=== PATIENT | female | born 1935 | race Caucasian/White ===

== ENCOUNTER 2018-02-13 12:47 | Emergency (ER) | payer MEDICARE, BC ==
[2018-02-13 15:20] VITALS: BP 162/69; PULSE 56; RESP 18; TEMP 97.6; O2SAT 94
== END 2018-02-13 14:15 | disposition home or self-care (01) | DRG 696 ==
LOC: ED 12:47
DX: R32 Unspecified urinary incontinence (principal)
CPT/HCPCS: 99282

== ENCOUNTER 2018-04-04 10:49 | Outpatient (CLI) | payer MEDICARE, BC ==
[2018-02-13 15:20] VITALS: O2SAT 94
== END 2018-04-04 10:50 | disposition home or self-care (01) | DRG 561 ==
LOC: CONVCARE 10:49
PROVIDERS: ATTEND Orthopaedic Surgery
DX: S82.132D Displaced fracture of medial condyle of left tibia, subsequent encounter for closed fracture with routine healing (principal); M17.12 Unilateral primary osteoarthritis, left knee
CPT/HCPCS: 73564

== ENCOUNTER 2018-06-08 14:20 | Emergency (ER) | payer MEDICARE, BC ==
[2018-06-08 14:51] VITALS: TEMP 98.8
[2018-06-08] MEDS ORDERED: SODIUM CHLORIDE 0.9% 1000ML 1,000 ML IV ONE (14:53)
[2018-06-08 15:31] LABS: APPEARANCE,URINE Cloudy; BILIRUBIN,URINE NEGATIVE (NEGATIVE); COLOR,URINE Yellow; GLUCOSE, URINE (UA) NEGATIVE (NEGATIVE); KETONES,URINE NEGATIVE (NEGATIVE); LEUKOCYTE ESTERASE ,URINE 3+ (NEGATIVE); NITRATE,URINE POSITIVE (NEGATIVE); OCCULT BLOOD,URINE 2+ (NEG-TRACE); PH,URINE 6.5; UROBILINOGEN,URINE 0.2 (0.2-1.0 EU)
[2018-06-08 15:35] LABS: BACTERIA 2+ (< 1+); CRYSTALS NEGATIVE (0-3 AVE/HPF); EPITHELIAL CELLS 0-2 (SQUAMOUS); WBC,URINE TNTC (0-5AV/HPF)
[2018-06-08] MEDS ORDERED: SODIUM CHLORIDE 0.9% FLUSH 10 ML SOL IV PRN (15:39)
[2018-06-08] MEDS ORDERED: CIPROFLOXACIN HCL 500 MG TAB PO SCH (16:00)
[2018-06-08] MEDS ORDERED: CIPROFLOXACIN HCL 500 MG TAB PO ONE (16:49)
[2018-06-08 20:10] VITALS: BP 158/90; PULSE 77; RESP 16; O2SAT 94
== END 2018-06-08 18:25 | DRG 690 ==
LOC: ED 14:20
DX: N39.0 Urinary tract infection, site not specified (principal); B96.20 Unspecified Escherichia coli [E. coli] as the cause of diseases classified elsewhere; E86.0 Dehydration
CPT/HCPCS: 71046; 81001; 87077; 87088; 87186; 96365; 96366; 99283; 99285; A9270-GY

== ENCOUNTER 2018-09-14 18:53 | Inpatient (IN) | payer MEDICARE, BC ==
[2018-09-14] MEDS: SODIUM CHLORIDE 0.9% FLUSH 10 ML SOL IV PRN (19:52)
[2018-09-14 20:00] LABS: BASOPHILS % (AUTO) 1 % (0-3); EOSINOPHILS % (AUTO) 2 % (0-9); HEMATOCRIT 31 % (35-47); HEMOGLOBIN 9.3 gm/dl (12.0-15.5); LYMPHOCYTES % (AUTO) 16.7 % (10-50); MEAN CORPUSCULAR HEMOGLOBIN 33.4 pg (27.0-32.0); MEAN CORPUSCULAR HGB CONC 29.8 gm/dl (32.0-36.0); MONOCYTES % (AUTO) 10.1 % (0-12); NEUTROPHILS % (AUTO) 70.3 % (37-80)
[2018-09-14 20:06] LABS: MEAN CORPUSCULAR VOLUME 112 fL (81-99)
[2018-09-14 20:16] LABS: ALBUMIN 2.5 gm/dl (3.4-5.0); BILIRUBIN,TOTAL 0.3 mg/dl (0.2-1.0); CALCIUM 10.2 mg/dl (8.5-10.1); CARBON DIOXIDE 30.4 mEq/L (21-32); CREATININE 1.95 mg/dl (0.60-1.00); CRP INFLAMMATORY 0.79 mg/dl (0.00-0.33); POTASSIUM 4.9 mMol/L (3.5-5.1); TOTAL PROTEIN 7.7 gm/dl (6.4-8.2)
[2018-09-14 20:17] LABS: TROP I 0.018 ng/ml (0.000-0.056)
[2018-09-14 20:51] LABS: APPEARANCE,URINE Clear; BILIRUBIN,URINE NEGATIVE (NEGATIVE); COLOR,URINE Yellow; GLUCOSE, URINE (UA) NEGATIVE (NEGATIVE); KETONES,URINE NEGATIVE (NEGATIVE); LEUKOCYTE ESTERASE ,URINE NEGATIVE (NEGATIVE); NITRATE,URINE NEGATIVE (NEGATIVE); OCCULT BLOOD,URINE NEGATIVE (NEG-TRACE); UROBILINOGEN,URINE 0.2 (0.2-1.0 EU)
[2018-09-14 21:06] LABS: SEDIMENTATION RATE 121 mm/hr (0-20)
[2018-09-14 21:15] LABS: BACTERIA TRACE (< 1+); CRYSTALS NEGATIVE (0-3 AVE/HPF); EPITHELIAL CELLS 0-2 (SQUAMOUS); RBC,URINE 0-2 (0-3AV/HPF); WBC,URINE 0-2 (0-5AV/HPF)
[2018-09-14] MEDS ORDERED: DM/GUAIFENESIN SYRUP 10 ML SYRP PO PRN (22:48)
[2018-09-14] MEDS ORDERED: MAGNESIUM HYDROXIDE 30 ML SUS PO PRN (22:48)
[2018-09-14] MEDS ORDERED: ALUMINUM/MAGNESIUM 30 ML SUS PO PRN (22:48)
[2018-09-14] MEDS ORDERED: FENTANYL 25 MCG PATCH TDM TD SCH (23:00)
[2018-09-15] MEDS: FUROSEMIDE 20mg SOL IV SCH ×3 (00:52→21:02)
[2018-09-15] MEDS: SODIUM CHLORIDE 0.9% FLUSH 10 ML SOL IV PRN ×3 (00:53→21:03)
[2018-09-15] MEDS ORDERED: PATIENT EDUCATION 1 MISC PRN (00:56)
[2018-09-15 07:51] LABS: CALCIUM 10.6 mg/dl (8.5-10.1); CARBON DIOXIDE 29.5 mEq/L (21-32); CREATININE 1.86 mg/dl (0.60-1.00)
[2018-09-15] MEDS ORDERED: Non-Formulary Medication MISC (Nystatin 30 Gm Cream 1 APPL) TOP SCH (09:00)
[2018-09-15] MEDS ORDERED: CALCITRIOL 0.25 MCG PO SCH (09:00)
[2018-09-15] MEDS ORDERED: GABAPENTIN 100 MG CAP PO SCH (09:00)
[2018-09-15] MEDS: TRAMADOL HYDROCHLORIDE 50 MG TAB PO SCH ×2 (10:18→21:07)
[2018-09-15] MEDS: LEVOTHYROXINE SODIUM 50 MCG TAB PO SCH (10:19)
[2018-09-15] MEDS: ATENOLOL 25 MG TAB PO SCH (10:19)
[2018-09-15] MEDS: LISINOPRIL 20 MG TAB PO SCH (10:20)
[2018-09-15] MEDS: ONDANSETRON HCL 4 MG TAB PO SCH (10:21)
[2018-09-15] MEDS: GABAPENTIN 300 MG CAP PO SCH ×2 (10:22→21:04)
[2018-09-15] MEDS: CHOLECALCIFEROL 1,000 IU TAB PO SCH (10:23)
[2018-09-15] MEDS: MULTIVITAMIN2 1 EA TAB PO SCH (10:23)
[2018-09-15] MEDS: DOCUSATE SODIUM 100 MG SGL PO SCH (10:28)
[2018-09-15] MEDS: ASCORBATE SOD PO SCH ×2 (12:08→20:15)
[2018-09-15] MEDS: ARGININE PO SCH ×2 (12:08→20:15)
[2018-09-15] MEDS: VITE AC PO SCH ×2 (12:08→20:15)
[2018-09-15] MEDS: FENTANYL 25 MCG PATCH TDM TD SCH (12:10)
[2018-09-15] MEDS: CLOTRIMAZOLE 1% CREAM TOP SCH ×4 (12:11→22:52)
[2018-09-15] MEDS: CALCITRIOL 0.25 MCG SGL PO SCH (12:17)
[2018-09-15] MEDS: ACETAMINOPHEN 325 MG PO SCH ×2 (12:17→18:35)
[2018-09-15] MEDS: HEPARIN SODIUM 5000 U/ML SOL SC SCH (20:59)
[2018-09-15] MEDS: AMLODIPINE 5 MG TAB PO SCH (21:05)
[2018-09-16 07:41] LABS: CALCIUM 10.1 mg/dl (8.5-10.1); CARBON DIOXIDE 29.9 mEq/L (21-32); CREATININE 1.9 mg/dl (0.60-1.00); MAGNESIUM 2.1 mg/dl (1.8-2.4); POTASSIUM 4.9 mMol/L (3.5-5.1)
[2018-09-16] MEDS: HEPARIN SODIUM 5000 U/ML SOL SC SCH (08:42)
[2018-09-16] MEDS: CLOTRIMAZOLE 1% CREAM TOP SCH ×4 (08:44→20:56)
[2018-09-16] MEDS: VITE AC PO SCH ×2 (08:44→21:10)
[2018-09-16] MEDS: ARGININE PO SCH ×2 (08:44→21:10)
[2018-09-16] MEDS: ASCORBATE SOD PO SCH ×2 (08:44→21:10)
[2018-09-16] MEDS: CALCITRIOL 0.25 MCG SGL PO SCH (08:49)
[2018-09-16] MEDS: LEVOTHYROXINE SODIUM 50 MCG TAB PO SCH (08:50)
[2018-09-16] MEDS: GABAPENTIN 300 MG CAP PO SCH ×2 (08:50→20:53)
[2018-09-16] MEDS: DOCUSATE SODIUM 100 MG SGL PO SCH (08:50)
[2018-09-16] MEDS: CHOLECALCIFEROL 1,000 IU TAB PO SCH (08:52)
[2018-09-16] MEDS: ATENOLOL 25 MG TAB PO SCH (08:52)
[2018-09-16] MEDS: MULTIVITAMIN2 1 EA TAB PO SCH (08:52)
[2018-09-16] MEDS: LISINOPRIL 20 MG TAB PO SCH (08:53)
[2018-09-16] MEDS ORDERED: FUROSEMIDE 40 MG SOL ONE (08:58)
[2018-09-16] MEDS: TRAMADOL HYDROCHLORIDE 50 MG TAB PO SCH ×2 (08:59→20:56)
[2018-09-16] MEDS: POLYETHYLENE GLYCOL 17 GM/1 TBS PDS PO SCH (08:59)
[2018-09-16] MEDS: FUROSEMIDE 20mg SOL IV SCH ×2 (08:59→14:01)
[2018-09-16] MEDS: ONDANSETRON HCL 4 MG TAB PO SCH (08:59)
[2018-09-16] MEDS: ACETAMINOPHEN 325 MG PO SCH ×2 (14:01→18:32)
[2018-09-16] MEDS: RIVAROXABAN 10 MG TAB PO SCH (14:45)
[2018-09-16] MEDS: AMLODIPINE 5 MG TAB PO SCH (20:53)
[2018-09-16] MEDS ORDERED: CLOTRIMAZOLE 1% CREAM TOP ONE (20:55)
[2018-09-17 07:20] LABS: CALCIUM 9.7 mg/dl (8.5-10.1); CARBON DIOXIDE 30.7 mEq/L (21-32); CREATININE 1.88 mg/dl (0.60-1.00); POTASSIUM 4.9 mMol/L (3.5-5.1)
[2018-09-17 07:22] LABS: HEMATOCRIT 27 % (35-47); HEMOGLOBIN 8.4 gm/dl (12.0-15.5); MEAN CORPUSCULAR HEMOGLOBIN 34.2 pg (27.0-32.0); MEAN CORPUSCULAR HGB CONC 30.7 gm/dl (32.0-36.0)
[2018-09-17 07:38] LABS: MEAN CORPUSCULAR VOLUME 111 fL (81-99)
[2018-09-17 08:21] LABS: ANISOCYTOSIS SLIGHT AMT; BAND NEUTROPHILS % (MANUAL) 12 %; BASOPHILS % (MANUAL) 0 % (0-3); EOSINOPHILS % (MANUAL) 4 % (0-9); LYMPHOCYTES % (MANUAL) 20 % (10-50); MONOCYTES % (MANUAL) 10 % (0-12); NEUTROPHILS % (MANUAL) 54 % (37-80); POIKILOCYTOSIS SLIGHT AMT
[2018-09-17 08:22] LABS: OVALOCYTES PRESENT
[2018-09-17] MEDS ORDERED: RIVAROXABAN 10 MG TAB PO ONE (08:24)
[2018-09-17] MEDS: TRAMADOL HYDROCHLORIDE 50 MG TAB PO SCH ×2 (08:33→21:11)
[2018-09-17] MEDS: ONDANSETRON HCL 4 MG TAB PO SCH (08:34)
[2018-09-17] MEDS: ATENOLOL 25 MG TAB PO SCH (08:34)
[2018-09-17] MEDS: RIVAROXABAN 10 MG TAB PO SCH (08:34)
[2018-09-17] MEDS: CALCITRIOL 0.25 MCG SGL PO SCH (08:34)
[2018-09-17] MEDS: DOCUSATE SODIUM 100 MG SGL PO SCH (08:35)
[2018-09-17] MEDS: LISINOPRIL 20 MG TAB PO SCH (08:36)
[2018-09-17] MEDS: MULTIVITAMIN2 1 EA TAB PO SCH (08:38)
[2018-09-17] MEDS: LEVOTHYROXINE SODIUM 50 MCG TAB PO SCH (08:39)
[2018-09-17] MEDS: GABAPENTIN 300 MG CAP PO SCH ×2 (08:39→21:09)
[2018-09-17] MEDS: ASCORBATE SOD PO SCH ×2 (08:41→21:13)
[2018-09-17] MEDS: ARGININE PO SCH ×2 (08:41→21:13)
[2018-09-17] MEDS: CLOTRIMAZOLE 1% CREAM TOP SCH ×4 (08:41→21:10)
[2018-09-17] MEDS: VITE AC PO SCH ×2 (08:41→21:13)
[2018-09-17] MEDS: POLYETHYLENE GLYCOL 17 GM/1 TBS PDS PO SCH (08:45)
[2018-09-17] MEDS: FUROSEMIDE 20mg SOL IV SCH (10:45)
[2018-09-17] MEDS: CHOLECALCIFEROL 1,000 IU TAB PO SCH (10:45)
[2018-09-17] MEDS: FUROSEMIDE 40 MG SOL IV SCH ×2 (10:46→12:25)
[2018-09-17] MEDS: ACETAMINOPHEN 325 MG PO SCH ×2 (12:25→16:56)
[2018-09-17 16:57] VITALS: RESP 16
[2018-09-17] MEDS: AMLODIPINE 5 MG TAB PO SCH (21:09)
[2018-09-18 07:26] LABS: CALCIUM 9.6 mg/dl (8.5-10.1); CREATININE 1.92 mg/dl (0.60-1.00); POTASSIUM 4.6 mMol/L (3.5-5.1)
[2018-09-18 07:41] LABS: BASOPHILS % (AUTO) 2 % (0-3); EOSINOPHILS % (AUTO) 2 % (0-9); HEMATOCRIT 27 % (35-47); HEMOGLOBIN 8.2 gm/dl (12.0-15.5); LYMPHOCYTES % (AUTO) 31.6 % (10-50); MEAN CORPUSCULAR HEMOGLOBIN 34.3 pg (27.0-32.0); MEAN CORPUSCULAR HGB CONC 30.8 gm/dl (32.0-36.0); MONOCYTES % (AUTO) 10.3 % (0-12); NEUTROPHILS % (AUTO) 54.2 % (37-80)
[2018-09-18 07:59] LABS: MEAN CORPUSCULAR VOLUME 111 fL (81-99)
[2018-09-18 08:01] LABS: ANISOCYTOSIS SLIGHT AMT
[2018-09-18 08:02] LABS: HYPOCHROMASIA SL AMT
[2018-09-18] MEDS: CLOTRIMAZOLE 1% CREAM TOP SCH (09:15)
[2018-09-18] MEDS: VITE AC PO SCH (09:15)
[2018-09-18] MEDS: ARGININE PO SCH (09:15)
[2018-09-18] MEDS: ASCORBATE SOD PO SCH (09:15)
[2018-09-18] MEDS: CALCITRIOL 0.25 MCG SGL PO SCH (09:15)
[2018-09-18] MEDS: DOCUSATE SODIUM 100 MG SGL PO SCH (09:16)
[2018-09-18] MEDS: MULTIVITAMIN2 1 EA TAB PO SCH (09:16)
[2018-09-18] MEDS: LEVOTHYROXINE SODIUM 50 MCG TAB PO SCH (09:16)
[2018-09-18] MEDS: FENTANYL 25 MCG PATCH TDM TD SCH (09:16)
[2018-09-18] MEDS: POLYETHYLENE GLYCOL 17 GM/1 TBS PDS PO SCH (09:16)
[2018-09-18] MEDS: GABAPENTIN 300 MG CAP PO SCH (09:16)
[2018-09-18] MEDS: LISINOPRIL 20 MG TAB PO SCH (09:16)
[2018-09-18] MEDS: ATENOLOL 25 MG TAB PO SCH (09:17)
[2018-09-18] MEDS: RIVAROXABAN 10 MG TAB PO SCH (09:17)
[2018-09-18] MEDS: TRAMADOL HYDROCHLORIDE 50 MG TAB PO SCH (09:17)
[2018-09-18] MEDS: ONDANSETRON HCL 4 MG TAB PO SCH (09:17)
[2018-09-18 09:27] VITALS: BP 132/54; PULSE 60; TEMP 98.3; O2SAT 96
[2018-09-18] MEDS: CHOLECALCIFEROL 1,000 IU TAB PO SCH (09:37)
[2018-09-18] MEDS ORDERED: FUROSEMIDE 40 MG TAB PO SCH (10:15)
== END 2018-09-18 10:25 | DRG 948 ==
LOC: ED 18:53 → ACUTE CARE 22:23
PROVIDERS: ADMIT Family Medicine; ATTEND Family Medicine
DX: R60.9 Edema, unspecified (principal); I48.91 Unspecified atrial fibrillation; N18.9 Chronic kidney disease, unspecified; R41.82 Altered mental status, unspecified; R40.2362 Coma scale, best motor response, obeys commands, at arrival to emergency department; R40.2142 Coma scale, eyes open, spontaneous, at arrival to emergency department; R40.2252 Coma scale, best verbal response, oriented, at arrival to emergency department; D64.9 Anemia, unspecified; D46.9 Myelodysplastic syndrome, unspecified
CPT/HCPCS: 36415; 70450; 71045; 80048; 80053; 81001; 83735; 83880; 84100; 84484; 85007; 85025; 85027; 85651; 93005; 93012; 93306; 99223; 99231; 99285; J1644; J1940; A9270; A9270-GY

== ENCOUNTER 2018-09-24 10:10 | Emergency (ER) | payer MEDICARE, BC ==
[2018-09-24 11:10] VITALS: TEMP 98.9; O2SAT 95
[2018-09-24] MEDS ORDERED: LEVOFLOXACIN 500 MG TAB ONE (11:24)
[2018-09-24] MEDS: LEVOFLOXACIN 500 MG TAB PO SCH (11:25)
[2018-09-24 15:50] VITALS: BP 198/70; PULSE 68; RESP 15
== END 2018-09-24 11:40 | DRG 195 ==
LOC: ED 10:10
DX: J18.9 Pneumonia, unspecified organism (principal); I48.91 Unspecified atrial fibrillation; I50.9 Heart failure, unspecified
CPT/HCPCS: 71045; 99283; A9270-GY

== ENCOUNTER 2018-10-03 09:28 | Inpatient (IN) | payer MEDICARE, BC ==
[2018-10-03] MEDS ORDERED: ALBUTEROL/IPRATROPIUM 1 VIAL SOL INH ONE (09:57)
[2018-10-03] MEDS ORDERED: ALBUTEROL/IPRATROPIUM 1 VIAL SOL ONE (10:03)
[2018-10-03 10:15] LABS: HEMATOCRIT 28 % (35-47); HEMOGLOBIN 8.6 gm/dl (12.0-15.5); MEAN CORPUSCULAR HEMOGLOBIN 32.9 pg (27.0-32.0); MEAN CORPUSCULAR HGB CONC 30.1 gm/dl (32.0-36.0)
[2018-10-03 10:21] LABS: MEAN CORPUSCULAR VOLUME 109 fL (81-99)
[2018-10-03 10:31] LABS: CALCIUM 9.9 mg/dl (8.5-10.1); CARBON DIOXIDE 32.1 mEq/L (21-32); CREATININE 1.76 mg/dl (0.60-1.00); POTASSIUM 4.1 mMol/L (3.5-5.1)
[2018-10-03 11:24] LABS: BAND NEUTROPHILS % (MANUAL) 2 %; BASOPHILS % (MANUAL) 0 % (0-3); EOSINOPHILS % (MANUAL) 1 % (0-9); LYMPHOCYTES % (MANUAL) 18 % (10-50); MONOCYTES % (MANUAL) 12 % (0-12); NEUTROPHILS % (MANUAL) 67 % (37-80); POIKILOCYTOSIS SLIGHT AMT
[2018-10-03 11:25] LABS: ANISOCYTOSIS SLIGHT AMT; TEAR DROP CELLS PRESENT
[2018-10-03] MEDS ORDERED: ALBUTEROL NEB SOL 2.5MG/3ML 1 VIAL SOL NEB PRN (12:34)
[2018-10-03] MEDS ORDERED: SOLUMEDROL 125 MG/2 ML 125 MG/2 ML PDS IV SCH (12:45)
[2018-10-03] MEDS ORDERED: SODIUM CHLORIDE 0.9% FLUSH 10 ML SOL IV SCH (12:45)
[2018-10-03] MEDS ORDERED: FENTANYL 25 MCG PATCH TDM TD SCH (13:00)
[2018-10-03] MEDS ORDERED: POLYETHYLENE GLYCOL 17 GM/1 TBS PDS PO SCH (13:00)
[2018-10-03] MEDS ORDERED: PATIENT EDUCATION 1 MISC PRN (14:56)
[2018-10-03] MEDS: ALBUTEROL/IPRATROPIUM 1 VIAL SOL INH SCH ×2 (15:03→19:01)
[2018-10-03] MEDS: FUROSEMIDE 40 MG TAB PO SCH (15:08)
[2018-10-03] MEDS: LEVOFLOXACIN 500 MG TAB PO SCH (15:08)
[2018-10-03] MEDS: PREDNISONE 20 MG TAB PO SCH (18:48)
[2018-10-03] MEDS: GABAPENTIN 300 MG CAP PO SCH (20:31)
[2018-10-03] MEDS: AMLODIPINE 5 MG TAB PO SCH (20:32)
[2018-10-03] MEDS: ACETAMINOPHEN 325 MG PO SCH (20:32)
[2018-10-03] MEDS: TRAMADOL HYDROCHLORIDE 50 MG TAB PO SCH (20:32)
[2018-10-04] MEDS: ALBUTEROL/IPRATROPIUM 1 VIAL SOL INH SCH ×5 (01:04→23:55)
[2018-10-04] MEDS: LEVOTHYROXINE SODIUM 50 MCG TAB PO SCH (06:09)
[2018-10-04 07:25] LABS: HEMATOCRIT 26 % (35-47); HEMOGLOBIN 7.8 gm/dl (12.0-15.5); MEAN CORPUSCULAR HEMOGLOBIN 33.1 pg (27.0-32.0)
[2018-10-04 07:33] LABS: MEAN CORPUSCULAR VOLUME 110 fL (81-99)
[2018-10-04 07:34] LABS: CALCIUM 9.7 mg/dl (8.5-10.1); CARBON DIOXIDE 30.6 mEq/L (21-32); CREATININE 1.85 mg/dl (0.60-1.00); POTASSIUM 4.3 mMol/L (3.5-5.1)
[2018-10-04 08:17] LABS: ANISOCYTOSIS SLIGHT AMT; BAND NEUTROPHILS % (MANUAL) 28 %; BASOPHILS % (MANUAL) 0 % (0-3); EOSINOPHILS % (MANUAL) 0 % (0-9); LYMPHOCYTES % (MANUAL) 10 % (10-50); MONOCYTES % (MANUAL) 2 % (0-12); NEUTROPHILS % (MANUAL) 60 % (37-80); POIKILOCYTOSIS SLIGHT AMT; SPHEROCYTES PRESENT; TARGET CELLS PRESENT
[2018-10-04 08:18] LABS: OVALOCYTES PRESENT; TEAR DROP CELLS PRESENT
[2018-10-04] MEDS ORDERED: LEVOTHYROXINE SODIUM 50 MCG TAB PO SCH (09:00)
[2018-10-04] MEDS: LEVOFLOXACIN 500 MG TAB PO SCH (09:11)
[2018-10-04] MEDS: FUROSEMIDE 40 MG TAB PO SCH ×2 (09:11→13:01)
[2018-10-04] MEDS: GABAPENTIN 300 MG CAP PO SCH ×2 (09:11→20:48)
[2018-10-04] MEDS: ATENOLOL 25 MG TAB PO SCH (09:11)
[2018-10-04] MEDS: TRAMADOL HYDROCHLORIDE 50 MG TAB PO SCH ×2 (09:11→20:54)
[2018-10-04] MEDS: ACETAMINOPHEN 325 MG PO SCH ×2 (09:11→20:49)
[2018-10-04] MEDS: PREDNISONE 20 MG TAB PO SCH (09:24)
[2018-10-04] MEDS ORDERED: PREDNISONE 20 MG TAB PO SCH (18:00)
[2018-10-04] MEDS: AMLODIPINE 5 MG TAB PO SCH (20:48)
[2018-10-05] MEDS: ALBUTEROL/IPRATROPIUM 1 VIAL SOL INH SCH (06:10)
[2018-10-05] MEDS: LEVOTHYROXINE SODIUM 50 MCG TAB PO SCH (06:10)
[2018-10-05 06:43] VITALS: PULSE 77
[2018-10-05 08:08] LABS: CALCIUM 9.5 mg/dl (8.5-10.1); CARBON DIOXIDE 29.3 mEq/L (21-32); CREATININE 1.89 mg/dl (0.60-1.00); POTASSIUM 4.4 mMol/L (3.5-5.1)
[2018-10-05] MEDS: ACETAMINOPHEN 325 MG PO SCH (08:23)
[2018-10-05] MEDS: PREDNISONE 20 MG TAB PO SCH (08:23)
[2018-10-05] MEDS: TRAMADOL HYDROCHLORIDE 50 MG TAB PO SCH (08:23)
[2018-10-05] MEDS: GABAPENTIN 300 MG CAP PO SCH (08:23)
[2018-10-05] MEDS: FUROSEMIDE 40 MG TAB PO SCH ×3 (08:24→12:15)
[2018-10-05] MEDS: ATENOLOL 25 MG TAB PO SCH (08:24)
[2018-10-05] MEDS: LEVOFLOXACIN 500 MG TAB PO SCH (08:24)
[2018-10-05 08:35] LABS: BASOPHILS % (AUTO) 1 % (0-3); EOSINOPHILS % (AUTO) 0 % (0-9); HEMATOCRIT 28 % (35-47); HEMOGLOBIN 8.2 gm/dl (12.0-15.5); MEAN CORPUSCULAR HEMOGLOBIN 32.3 pg (27.0-32.0); MEAN CORPUSCULAR HGB CONC 29.1 gm/dl (32.0-36.0); MONOCYTES % (AUTO) 6.8 % (0-12); NEUTROPHILS % (AUTO) 80.3 % (37-80)
[2018-10-05 08:41] LABS: MEAN CORPUSCULAR VOLUME 111 fL (81-99)
[2018-10-05 08:47] VITALS: BP 118/57; RESP 20; TEMP 98.1; O2SAT 95
[2018-10-05] MEDS ORDERED: LEVOFLOXACIN 500 MG TAB PO SCH (09:01)
== END 2018-10-05 12:10 | DRG 206 ==
LOC: ED 09:28 → SUPCPDRO 09:28 → ACUTE CARE 12:25 → UNDOADMIN 12:25 → ACUTE CARE 13:45
PROVIDERS: ADMIT Family Medicine; ATTEND Family Medicine
DX: R09.02 Hypoxemia (principal); J98.11 Atelectasis; J90 Pleural effusion, not elsewhere classified; R06.02 Shortness of breath; I48.91 Unspecified atrial fibrillation; R73.03 Prediabetes; J18.9 Pneumonia, unspecified organism; I48.0 Paroxysmal atrial fibrillation; N18.3 Chronic kidney disease, stage 3 (moderate); D46.9 Myelodysplastic syndrome, unspecified; R06.2 Wheezing; R05 Cough
CPT/HCPCS: 36415; 71045; 80048; 83880; 85007; 85025; 85027; 94150; 99284; J2930; A9270; A9270-GY